=== PATIENT | female | born 1955 | race Caucasian/White ===

== ENCOUNTER → 2018-12-12 19:48 | Outpatient (CLI) | payer BC ==
[2014-05-12 17:49] VITALS: BMI 25.5
[~2018-12-12 19:48] MED LIST: ACETAMINOPHEN500 M1 PO; DRISTAN15 ML NS; ESTRACE2 MG PO; FOLIC ACI PO; LOPRESSOR25 MG PO; PEPCID20 MG PO; PERCOCET 10/3251 TA1 PO; ROBAXIN-750750 MG PO; VALIUM 2 MG TAB2 MG PO; ZANAFLEX4 MG PO; [UNRECOGNIZED DRUG - OTHER]
== END | disposition home or self-care (01) ==
LOC: D.MAMMO 15:30
PROVIDERS: ATTEND Family Medicine
DX: Z12.31 Encounter for screening mammogram for malignant neoplasm of breast (principal)